=== PATIENT | male | born 1985 | race Caucasian/White ===

== ENCOUNTER 2020-08-21 12:24 | Emergency (ER) | payer OTHER, SELFPAY ==
[2020-08-21 12:42] VITALS: BP 152/97; PULSE 112; RESP 18; TEMP 36.7; O2SAT 100
--- NOTE | 2020-08-21 12:48 | ED.URI ---
HPI - URI/Sore Throat General Chief Complaint: Upper Respiratory Infection Stated Complaint: SMITH/fever/chills Source: patient Mode of arrival: ambulatory Limitations: no limitations History of Present Illness HPI Narrative: Patient is a 35-year-old male who presents complaining of headache, body aches, fever and chills x2 days. He reports positive exposure to Covid. He denies chest pain or shortness of breath at this time. He denies taking [id number] medications at this time. Patient has no significant medical history. MD elicited complaint: fever and other (Headache) Related Data Home Medications Medication Instructions Recorded Confirmed No Home Medications 08/21/20 08/21/20 Allergies Allergy/AdvReac Type Severity Reaction Status Date / Time No Known Allergies Allergy Verified 08/21/20 13:03 Review of Systems Review of Systems: Narrative: CONSTITUTIONAL: Reports fever and chills EYES: Denies visual changes, redness, or discharge. ENT: Denies rhinorrhea, congestion, sore throat, or otalgia. CARDIOVASCULAR: Denies chest pain, palpitations, or edema. RESPIRATORY: Denies cough or dyspnea. GASTROINTESTINAL: Denies abdominal pain, nausea, vomiting, or diarrhea. GENITOURINARY: Denies dysuria or hematuria. SKIN: Denies rash or itching. MUSCULOSKELETAL: Reports generalized body aches NEUROLOGIC: Reports headache PSYCHIATRIC: Denies anxiety or depression. [facility] Past Medical History Medical History No significant past medical history Surgical History Surgical History No significant past surgical history Family History Family History (Updated 08/21/20 @ 12:50 by EMMANUEL Reina) Other No significant family history Social History Social History (Updated 08/21/20 @ 12:50 by EMMANUEL Reina) Smoking status: Never smoker Alcohol intake: current Alcohol use details: Occasional Substance use: never Gender identity (if verbalized by the patient): Male Comments At the time of signature, I have reviewed and agree with nursing past medical, surgical, social, and family history unless otherwise noted. Please see nursing chart for further information. There is no relevant family history pertinent to the presenting complaint. Exam Narrative: Exam Narrative: GENERAL: Well-appearing, well-nourished, and in no acute distress. HEAD: Normocephalic, atraumatic. EYES: No redness or drainage. ENT: Mucous membranes pink and moist. CHEST: No respiratory distress. HEART: Regular rate and rhythm. EXTREMITIES: Normal range of motion. SKIN: Warm, dry, no rash. NEURO: No focal deficits. Alert and oriented x3. Gait steady. PSYCH: Normal affect. No signs of depression or anxiety. Course Vital Signs Vital signs: Vital Signs Temperature 36.7 C 08/21/20 12:42 Pulse Rate 112 H 08/21/20 12:42 Respiratory Rate 18 08/21/20 12:42 Blood Pressure 152/97 H 08/21/20 12:42 Pulse Oximetry 100 08/21/20 12:42 Temperature 36.7 C 08/21/20 12:42 Pulse Rate 112 H 08/21/20 12:42 Respiratory Rate 18 08/21/20 12:42 Blood Pressure 152/97 H 08/21/20 12:42 Pulse Oximetry 100 08/21/20 12:42 Reviewed. Patient has been instructed to follow-up with his PCP regarding his blood pressure. MDM - URI/Sore Throat MDM Narrative Medical decision making narrative: Patient's rapid Covid test is positive at this time. Discussed supportive care for and symptomatic treatment for Covid. Discussed quarantine. Patient is aware if he develops increased chest pain or shortness of breath that he is to go to the emergency department immediately for further evaluation. Patient is stable for discharge home with outpatient follow-up as needed. Differential Diagnosis Differential diagnosis: Likely upper respiratory infection, viral infection and other (Covid) Lab Data Labs: Lab Result
== END 2020-08-21 13:04 | disposition home or self-care (01) ==
PROVIDERS: Emergency Provider Nurse Practitioner; PCP Physician Assistant
DX: U07.1 COVID-19 (principal)
CPT/HCPCS: 87426; 99213; C9803; G0463